=== PATIENT | female | born 1940 | race Caucasian/White ===

== ENCOUNTER 2019-10-01 00:49 | Emergency (ER) | payer MEDICARE ==
[~2019-10-01] VITALS: Ht 170.2 cm; Wt 57.6 kg
--- NOTE | ~2019-10-01 | EKG ---
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
[2019-10-01] MEDS ORDERED: TOPROL XL100 MG PO (01:03)
[2019-10-01] MEDS ORDERED: LEVO-T100 MCG PO (01:03)
[2019-10-01] MEDS ORDERED: CLOPIDOGREL75 MG PO (01:03)
[2019-10-01] MEDS ORDERED: VITAMIN B-1100 M2 PO (01:04)
[2019-10-01] MEDS ORDERED: ASA81BEC PO (01:04)
[2019-10-01] MEDS ORDERED: SUPER THERAVIT1 EACH PO (01:04)
[2019-10-01 01:47] LABS: ABSOLUTE EOSINOPHILS 0.1 thou/uL (0.0-0.7); ABSOLUTE LYMPHOCYTES 1.2 thou/uL (0.8-5.3); ABSOLUTE MONOCYTES 0.5 thou/uL (0.0-1.2); ABSOLUTE NEUTROPHILS 2.6 thou/uL (1.6-8.1); BASOPHILS 1.1 %; EOSINOPHILS 3.2 %; HEMATOCRIT 34.1 % (37.0-47.0); HEMOGLOBIN 12.3 gm/dL (12.0-15.0); LYMPHOCYTES 26.9 %; MCH 34.7 pg (26.0-34.0); MCV 96.5 fL (80.0-100.0); MONOCYTES 10.7 %; MPV 7.9 fl. (7.2-11.1); NUCLEATED RBCS 0 /100WBC; PLATELET COUNT* 185 thou/uL (150-400); POLYS 58.1 %; RBC 3.53 mil/uL (4.20-5.00); RDW-CV 12.5 % (10.5-14.5); WBC 4.4 thou/uL (4.0-11.0)
[2019-10-01 01:48] LABS: CALCIUM 8.8 mg/dL (8.5-10.1); CREATININE 0.7 mg/dL (0.6-1.3); POTASSIUM 3.2 mmol/L (3.5-5.1)
[2019-10-01 01:59] LABS: ALBUMIN 3.9 g/dL (3.4-5.0); TOTAL BILIRUBIN 0.5 mg/dL (<0.1-1.0); TOTAL PROTEIN 6.8 g/dL (6.4-8.2)
[2019-10-01] MEDS ORDERED: HYDROCHLOROTHIA25 M2 PO (03:04)
[2019-10-01 04:31] VITALS: BP 180/62
== END 2019-10-01 04:31 | disposition home or self-care (01) ==
LOC: M.ERS 00:49
PROVIDERS: Personal Emergency Response Attendant
DX: I16.0 Hypertensive urgency (principal); I10 Essential (primary) hypertension; Z85.3 Personal history of malignant neoplasm of breast; Z85.850 Personal history of malignant neoplasm of thyroid

== ENCOUNTER 2019-10-03 12:25 | Emergency (ER) | payer MEDICARE ==
[~2019-10-03] VITALS: Ht 170.2 cm; Wt 56.7 kg
--- NOTE | ~2019-10-03 | EKG ---
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: : 1940 Requested By: Genoveva Lorenzo Order Number: [id number] MD: Measurements Intervals [place] Rate: 53 P: 78 AR: 213 QRS: 9 QRSD: 95 T: 78 QT: 441 QTc: 414 Interpretive Statements Sinus rhythm Borderline prolonged AR interval RSR' in V1 or V2, right VCD or RVH Compared to ECG 10/01/2019 00:53:14 Right ventricular hypertrophy now present Left ventricular hypertrophy no longer present Early repolarization no longer present Myocardial infarct finding no longer present [email or web address] By: [id number] Epiphany EpiphMD rachele /ARON
[~2019-10-03 12:25] MED LIST: ASA81BEC PO; CLOPIDOGREL75 MG PO; HYDROCHLOROTHIA25 M2 PO; LEVO-T100 MCG PO; SUPER THERAVIT1 EACH PO; TOPROL XL100 MG PO; VITAMIN B-1100 M2 PO
[2019-10-03] MEDS ORDERED: ATORVASTATIN CA80 MG PO (12:48)
[2019-10-03] MEDS ORDERED: METOPROLOL TAR100 MG PO (12:49)
[2019-10-03 12:53] LABS: ABSOLUTE BASOPHILS 0.1 thou/uL (0.0-0.2); ABSOLUTE EOSINOPHILS 0.1 thou/uL (0.0-0.7); ABSOLUTE LYMPHOCYTES 0.9 thou/uL (0.8-5.3); ABSOLUTE MONOCYTES 0.4 thou/uL (0.0-1.2); ABSOLUTE NEUTROPHILS 4.8 thou/uL (1.6-8.1); BASOPHILS 0.9 %; EOSINOPHILS 1.1 %; HEMATOCRIT 38.1 % (37.0-47.0); HEMOGLOBIN 13.4 gm/dL (12.0-15.0); LYMPHOCYTES 14.1 %; MCH 34.4 pg (26.0-34.0); MCHC 35.3 g/dL (28.0-37.0); MCV 97.6 fL (80.0-100.0); MONOCYTES 6.8 %; MPV 7.7 fl. (7.2-11.1); NUCLEATED RBCS 0 /100WBC; PLATELET COUNT* 219 thou/uL (150-400); POLYS 77.1 %; RBC 3.91 mil/uL (4.20-5.00); RDW-CV 12.8 % (10.5-14.5); WBC 6.3 thou/uL (4.0-11.0)
[2019-10-03 13:01] LABS: CALCIUM 9.3 mg/dL (8.5-10.1); CREATININE 0.6 mg/dL (0.6-1.3); POTASSIUM 3.7 mmol/L (3.5-5.1)
[2019-10-03 13:05] LABS: ALBUMIN 4.3 g/dL (3.4-5.0); TOTAL BILIRUBIN 0.9 mg/dL (<0.1-1.0); TOTAL PROTEIN 7.3 g/dL (6.4-8.2)
[2019-10-03 13:49] LABS: URINE BILIRUBIN NEGATIVE (Negative); URINE BLOOD TRACE (Negative); URINE CLARITY CLEAR; URINE COLOR YELLOW; URINE GLUCOSE-RANDOM NEGATIVE (Negative); URINE KETONES NEGATIVE (Negative); URINE LEUKOCYTES-REFLEX NEGATIVE (Negative); URINE NITRITE-REFLEX NEGATIVE (Negative); URINE PROTEIN NEGATIVE (Negative); URINE SPECIFIC GRAVITY 1.015 (1.005-1.030); URINE UROBILINOGEN 0.2 E.U./dl (0.2-1.0)
[2019-10-03 15:45] VITALS: BP 163/64
== END 2019-10-03 15:45 | disposition home or self-care (01) ==
LOC: M.ERS 12:25
PROVIDERS: Physician Assistant
DX: I10 Essential (primary) hypertension (principal); Z85.3 Personal history of malignant neoplasm of breast; Z85.850 Personal history of malignant neoplasm of thyroid

== ENCOUNTER → 2019-10-08 | Outpatient (CLI) | payer MEDICARE ==
[~2019-10-08] MED LIST changes: +ATORVASTATIN CA80 MG PO; +METOPROLOL TAR100 MG PO
--- NOTE | 2019-10-08 16:23 | 2DMMODE ---
[place] [address] 2 D/M-MODE ECHOCARDIOGRAM Name: MELINA KEMP Room: [facility]#: [id number] Admission: 10/08/19 Attend Phys: Roly Dumont DO Discharge: Date of : 38 Date of Service: 10/08/19 1622 Report #: [id number] THIS REPORT FOR: cc: Roly Dumont Adam J DO Holkins, John M. MD [facility] ~ APPROVED REPORT Study performed: 10/08/2019 14:09:45 EXAM: Comprehensive 2D, Doppler, and color-flow Echocardiogram Patient Location: Out-Patient BSA: 1.64 HR: 64 bpm BP: 138/72 mmHg Other Information Study Quality: Good Indications Murmur 2D Dimensions IVSd: 10.31 (7-11mm) LVOT Diam: 20.27 (18-24mm) LVDd: 46.15 mm PWd: 10.87 (7-11mm) Ascending Ao: 29.33 (22-36mm) LVDs: 29.68 (25-40mm) Aortic Root: 25.96 mm Volumes Left Atrial Volume (Systole) LA ESV Index: 27.80 mL/m2 Aortic Valve AoV Peak Jeremiah.: 1.22 m/s AO Peak Gr.: 5.98 mmHg LVOT Max P.37 mmHg AO Mean Gr.: 3.61 mmHg LVOT Mean P.27 mmHg LVOT Max V: 0.77 m/s AO V2 VTI: 31.54 cm LVOT Mean V: 0.53 m/s HECTOR (VTI): 2.25 cm2 LVOT V1 VTI: 22.02 cm AI [place]: 2.57 m/s2 AI PHT: 531.85 [place] [address] 2 D/M-MODE ECHOCARDIOGRAM Name: MELINA KEMP Room: [facility]#: [id number] Admission: 10/08/19 Attend Phys: Roly Dumont DO Discharge: Date of : 38 Date of Service: 10/08/19 1622 Report #: [id number] Mitral Valve E/A Ratio: 0.96 MV Decel. Time: 182.33 ms MV E Max Jeremiah.: 0.60 m/s MV PHT: 52.88 ms MVA (PHT): 4.16 cm2 TDI E/Lateral E': 6.00 E/Medial E': 6.00 Medial E' Jeremiah.: 0.10 m/s Lateral E' Jeremiah.: 0.10 m/s Pulmonary Valve PV Peak Jeremiah.: 0.92 m/s PV Peak Gr.: 3.36 mmHg Tricuspid Valve RAP Estimate: 5.00 mmHg TR Peak Gr.: 18.83 mmHg RVSP: 23.83 mmHg PA Pressure: 23.83 mmHg Left Ventricle The left ventricle is normal size. There is normal LV segmental wall motion. There is normal left ventricular wall thickness. Left ventricular systolic function is borderline. LVEF is 50-55%. Grade I - abnormal relaxation pattern. Right Ventricle The right ventricle is normal size. The right ventricular systolic function is normal. Atria The left atrium size is normal. The right atrium size is normal. Aortic Valve Mild aortic valve sclerosis. Mild to moderate aortic regurgitation. There is no aortic valvular stenosis. Mitral Valve The mitral valve is normal in structure. Mild mitral regurgitation. No evidence of mitral valve stenosis. Tricuspid Valve The tricuspid valve is normal in structure. [place] [address] 2 D/M-MODE ECHOCARDIOGRAM Name: DEACON ORENMELINA Jennifer Room: [facility]#: [id number] Admission: 10/08/19 Attend Phys: Roly Dumont DO Discharge: Date of : 38 Date of Service: 10/08/19 1622 Report #: [id number] Pulmonic Valve The pulmonary valve is normal in structure. Mild pulmonic regurgitation. Great Vessels The aortic root is normal in size. IVC is normal in size and collapses >50% with inspiration. Pericardium There is no pericardial effusion. <Conclusion> The left ventricle is normal size. There is normal left ventricular wall thickness. Left ventricular systolic function is borderline. LVEF is 50-55%. Grade I - abnormal relaxation pattern. The right ventricle is normal size. The left atrium size is normal. Mild aortic valve sclerosis. Mild to moderate aortic regurgitation. There is no aortic valvular stenosis. The mitral valve is normal in structure. Mild mitral regurgitation. The tricuspid valve is normal in structure. IVC is normal in size and collapses >50% with inspiration. There is no pericardial effusion. There is normal LV segmental wall motion. <ELECTRONICALLY SIGNED> By: Samir Herron MD, FACC 10/08/191621 21 21 Samir Herron MD, FACC /INF
== END ==
LOC: M.CRD 13:06
DX: I08.8 Other rheumatic multiple valve diseases (principal)

== ENCOUNTER 2019-10-18 16:42 | Inpatient (IN) | payer MEDICARE ==
[~2019-10-18] VITALS: Ht 170.2 cm; Wt 55.3 kg
[2019-10-18 16:44] VITALS: BP 196/73
[2019-10-18] MEDS ORDERED: ZESTRIL10 MG PO (16:49)
[2019-10-18 17:10] LABS: HEMATOCRIT 33.3 % (37.0-47.0); HEMOGLOBIN 11.8 gm/dL (12.0-15.0); MCH 34.1 pg (26.0-34.0); MCHC 35.3 g/dL (28.0-37.0); MCV 96.6 fL (80.0-100.0); MPV 6.8 fl. (7.2-11.1); NUCLEATED RBCS 0 /100WBC; PLATELET COUNT* 225 thou/uL (150-400); RBC 3.45 mil/uL (4.20-5.00); RDW-CV 12.6 % (10.5-14.5); WBC 13.5 thou/uL (4.0-11.0)
[2019-10-18 17:18] LABS: CALCIUM 9.2 mg/dL (8.5-10.1); CREATININE 0.8 mg/dL (0.6-1.3); POTASSIUM 3.6 mmol/L (3.5-5.1)
[2019-10-18 17:19] LABS: APTT 26.3 Seconds (25.0-31.3); INR 1.1; PROTIME 11.4 Seconds (9.20-11.50)
[2019-10-18 17:33] LABS: ALBUMIN 3.8 g/dL (3.4-5.0); CK-MB MASS 0.7 ng/mL (<0.5-3.6); MAGNESIUM 1.6 mg/dL (1.8-2.4); TOTAL BILIRUBIN 0.6 mg/dL (<0.1-1.0); TOTAL PROTEIN 6.9 g/dL (6.4-8.2)
[2019-10-18 17:33] LABS: INFLUENZA A ANTIGEN Negative (Negative); INFLUENZA B ANTIGEN Negative (Negative)
[2019-10-18 17:49] LABS: URINE BILIRUBIN NEGATIVE (Negative); URINE BLOOD TRACE (Negative); URINE CLARITY CLEAR; URINE COLOR YELLOW; URINE GLUCOSE-RANDOM NEGATIVE (Negative); URINE KETONES NEGATIVE (Negative); URINE LEUKOCYTES-REFLEX TRACE (Negative); URINE NITRITE-REFLEX NEGATIVE (Negative); URINE PROTEIN NEGATIVE (Negative); URINE UROBILINOGEN 0.2 E.U./dl (0.2-1.0)
[2019-10-18 17:59] LABS: ABSOLUTE LYMPHOCYTES 0.4 thou/uL (0.8-5.3); ABSOLUTE MONOCYTES 0.3 thou/uL (0.0-1.2); ABSOLUTE NEUTROPHILS 12.8 thou/uL (1.6-8.1)
[2019-10-18 18:00] LABS: PLATELET ESTIMATE ADEQUATE
[2019-10-18 18:06] LABS: MUCUS None Seen strn/LPF (None Seen); URINE WBC-REFLEX 0-5 Rare /HPF (0-5)
[2019-10-18 18:07] LABS: BACTERIA-REFLEX 1-9 Few /HPF (None Seen); CASTS None Seen /LPF (None Seen); CRYSTALS None Seen /LPF (None Seen); SQUAMOUS 0-3 Few /LPF (0-3); URINE RBC 0-2 Rare /HPF (0-2)
[2019-10-18 19:35] VITALS: BP 154/58
[2019-10-18 19:45] VITALS: BP 133/60
--- NOTE | 2019-10-18 19:45 | NUR ---
RECEIVED REPORT FROM ER. PT TO ROOM, AMBULATED FROM CART TO BR WITH STEADY GAIT. NO ACUTE DISTRESS. MED GIVEN IN ER FOR MENDEZ WITH IMPROVEMENT. TELEMETRY APPLIED SHOWING SR WITH 1ST AVB. SEE ADMISSION HX AND ASSESSMENT. WILL CONT TO MONITOR AND ASSIST NEEDED.
[2019-10-18 23:57] VITALS: BP 140/62
[2019-10-19] VITALS (7 sets, daily range): BP systolic 115–165; BP diastolic 51–77
--- NOTE | 2019-10-19 05:31 | NUR ---
SLEEPING WELL TONIGHT. TEMP 102.2, TYLENOL GIVEN, ANTIBIOTICS STARTED IN ER, UA AND BLOOD CULTURES OBTAINED IN ER. PT CONCERNED ABOUT "BROWN DISCHARGE WITH URINE". GAIT STEADY TO AND FROM BR. HS GOALS OF REST AND SAFETY ACHIEVED. HOURLY ROUNDING OBSERVED.
--- NOTE | 2019-10-19 11:36 | EKG ---
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: : 1940 Requested By: Angelo Shine Order Number: [id number] MD: Samir Herron Measurements Intervals [place] Rate: 111 P: 0 ND: 189 QRS: -25 QRSD: 93 T: -47 QT: 322 QTc: 438 Interpretive Statements Sinus tachycardia Left ventricular hypertrophy Nonspecific T abnormalities, lateral leads Baseline wander in lead(s) I,III,aVL Compared to ECG 10/03/2019 12:54:21 Left ventricular hypertrophy now present T-wave abnormality now present Sinus bradycardia no longer present Electronically Signed On 10-19-2019 11:35:45 TREE SAPPER by Samir Herron [email or web address] <ELECTRONICALLY SIGNED> By: Samir Herron MD, [facility] 10/19/19 1135 1644 1644 Samir Herron MD, [facility] /EPI
[2019-10-20 00:23] VITALS: BP 175/56
[2019-10-20 04:15] VITALS: BP 186/72
[2019-10-20 05:12] LABS: ABSOLUTE BASOPHILS 0.1 thou/uL (0.0-0.2); ABSOLUTE EOSINOPHILS 0.2 thou/uL (0.0-0.7); ABSOLUTE LYMPHOCYTES 0.8 thou/uL (0.8-5.3); ABSOLUTE MONOCYTES 0.6 thou/uL (0.0-1.2); ABSOLUTE NEUTROPHILS 5.7 thou/uL (1.6-8.1); BASOPHILS 0.7 %; EOSINOPHILS 2.1 %; HEMATOCRIT 30.7 % (37.0-47.0); HEMOGLOBIN 10.8 gm/dL (12.0-15.0); LYMPHOCYTES 11.4 %; MCHC 35.3 g/dL (28.0-37.0); MCV 96.4 fL (80.0-100.0); MONOCYTES 8.3 %; MPV 7.1 fl. (7.2-11.1); NUCLEATED RBCS 0 /100WBC; PLATELET COUNT* 205 thou/uL (150-400); POLYS 77.5 %; RBC 3.18 mil/uL (4.20-5.00); RDW-CV 12.9 % (10.5-14.5); WBC 7.3 thou/uL (4.0-11.0)
[2019-10-20 05:26] LABS: ALBUMIN 3.1 g/dL (3.4-5.0); CALCIUM 8.4 mg/dL (8.5-10.1); CREATININE 0.5 mg/dL (0.6-1.3); POTASSIUM 3.5 mmol/L (3.5-5.1); TOTAL BILIRUBIN 0.6 mg/dL (<0.1-1.0); TOTAL PROTEIN 6.1 g/dL (6.4-8.2)
--- NOTE | 2019-10-20 05:49 | NUR ---
PT CARE ASSUMED AT 1930. SAT MAINTAINED IN RA. ALERT AND ORIENTED X4. CALL LIGHT WITHIN REACH AND BED IN LOW POSITION. BP ELEVATED INFORMED TO PHYSICIAN, MEDICATION GIVEN PER EMAR. C/O PAIN, MEDICATION GIVEN PER EMAR. PT HAVING DIZZINESS THIS AM. HOURLY ROUNDING DONE FOR PT SAFETY.
[2019-10-20 06:00] VITALS: BP 184/76
[2019-10-20 08:25] VITALS: BP 139/71
--- NOTE | 2019-10-20 09:31 | NUR ---
PT REPORTS FEELING PALPITATIONS AND DIZZINESS. DIZZINESS IS NEW TODAY BUT REPORTS THAT PALPITATIONS STARTED WHEN SHE STARTED TAKING LISINOPRIL. MORNING DOSE HEL AND WILL REASSESS AT NOON
[2019-10-20 12:00] VITALS: BP 152/59
--- NOTE | 2019-10-20 15:36 | NUR ---
PT HAS BEEN RESTING AND AMBULATING AROUND ROOM ON ROUNDS WITHOUT C/O DIZZINES AST THIS TIME. VSS ON RA. SON VISITED AND DID REPORT THAT PT DRINKS HEAVILY DAILY BUT HAS NOT SHOWN ANY OUTWARD SIGNS OF WD. PT DOES ACT A BIT ANXIOUS. PT REPORTED PALPITATIONS THIS AM AND REFUSED LISINOPRIL. NO FURTHER REQUEST. CLWR.
[2019-10-20 17:08] LABS: ABSOLUTE EOSINOPHILS 0.2 thou/uL (0.0-0.7); ABSOLUTE LYMPHOCYTES 1.1 thou/uL (0.8-5.3); ABSOLUTE MONOCYTES 0.7 thou/uL (0.0-1.2); ABSOLUTE NEUTROPHILS 5.6 thou/uL (1.6-8.1); BASOPHILS 0.5 %; EOSINOPHILS 2.5 %; HEMOGLOBIN 11.9 gm/dL (12.0-15.0); LYMPHOCYTES 14.8 %; MCH 33.8 pg (26.0-34.0); MCV 96.6 fL (80.0-100.0); MONOCYTES 9.1 %; NUCLEATED RBCS 0 /100WBC; PLATELET COUNT* 242 thou/uL (150-400); POLYS 73.1 %; RBC 3.52 mil/uL (4.20-5.00); RDW-CV 12.9 % (10.5-14.5); WBC 7.7 thou/uL (4.0-11.0)
[2019-10-20 17:14] LABS: INR 1.1; PROTIME 11.2 Seconds (9.20-11.50)
[2019-10-20 17:22] LABS: ALBUMIN 3.6 g/dL (3.4-5.0); CALCIUM 8.8 mg/dL (8.5-10.1); CREATININE 0.6 mg/dL (0.6-1.3); PHOSPHORUS* 3.3 mg/dL (2.5-4.9); POTASSIUM 4.1 mmol/L (3.5-5.1); TOTAL BILIRUBIN 0.7 mg/dL (<0.1-1.0); TOTAL PROTEIN 6.7 g/dL (6.4-8.2)
--- NOTE | 2019-10-20 18:52 | NUR ---
READMINISTERED TELE MONITOR. PT GIVEN PO ATIVAN. PT INITIALLY REFUSED FLUIDS BUT IS NOW OK WITH IT. PT EDUCATED ON ALCOHOL WITHDRAWAL AND MADE TO UNDERSTAND THAT THIS IS NOT A JUDGMENT NOR IS ANYONE TELLING HER SHE HAS TO QUIT. WE ARE MANAGING SYMPTOMS.
[2019-10-20 19:50] VITALS: BP 150/67
[2019-10-21 00:09] VITALS: BP 137/47
--- NOTE | 2019-10-21 03:40 | NUR ---
PT CARE ASSUMED AT 1930. SAT MAINTAINED IN . PT WAS CONFUSED, RESTLESS AND AGITATED, RIPPED THE IV OUT.
--- NOTE | 2019-10-21 05:56 | NUR ---
PT CARE ASSUMED AT 1930. SAT MAINTAINED IN RA. PT IS WITHDRAWING FROM ALCOHOL. CONFUSED, IMPULSIVE AND RESTLESS. PULLED HER IV TWICE. MEDICATION GIVEN ORDERED. CALL LIGHT WITHIN REACH AND BED IN LOW POSITION. HOURLY ROUNDING DONE FOR PT SAFETY.
[2019-10-21 08:03] LABS: AMP/METHAMP Negative (Negative); BARBITURATES Negative (Negative); BENZODIAZEPINES Negative (Negative); COCAINE Negative (Negative); METHADONE Negative (Negative); OPIATES Negative (Negative); PCP Negative (Negative); THC Negative (Negative)
[2019-10-21 11:07] VITALS: BP 196/88
--- NOTE | 2019-10-21 18:27 | NUR ---
PT HAS BEEN OX2,CONFUSED, IMPULSIVE,ANXIOUS AND IRRITABLE. CIWA BETWEEN 8-10. BP HAS BEEN ELEVATED T/O DAY, ASYMPTOMATIC WITHOUT ANY OTHER COMPLAINTS T/O DAY AND OTHER VSS ON RA. PT IS UNSTEADY WITH ASSIST. FALL PRECAUTIONS IN PLACE ALTHOUGH PT DOES CLIMB OVER RAILS AND HAS LOST 3 IVS R/T THIS IN LESS THAN 24 HOURS. MAY REQUEST MOVING PT CLOSER TO NURSES STATION.
[2019-10-21 19:40] VITALS: BP 164/73
[2019-10-22 00:23] VITALS: BP 172/52
[2019-10-22 04:00] VITALS: BP 159/62
--- NOTE | 2019-10-22 04:52 | NUR ---
PT CARE ASSUMED AT 1930. SAT MAINTAINED IN RA. PT ORIENTED TO SELF. CONFUSED AND RESTLESS, PULLED HER IV OUT. KEPT ON TAKING HER HEART MONITOR OFF. MEDICATION GIVEN PER EMAR. CALL LIGHT WITHIN REACH AND BED IN LOW POSITION. HOURLY ROUNDING DONE FOR PT SAFETY.
[2019-10-22 05:40] LABS: CALCIUM 8.2 mg/dL (8.5-10.1); CREATININE 0.4 mg/dL (0.6-1.3); MAGNESIUM 1.9 mg/dL (1.8-2.4); PHOSPHORUS* 3.2 mg/dL (2.5-4.9); POTASSIUM 3.3 mmol/L (3.5-5.1)
[2019-10-22 07:35] VITALS: BP 180/77
[2019-10-22 12:08] VITALS: BP 181/65
[2019-10-22] MEDS ORDERED: MACROBID 100 M100 MG PO (12:45)
[2019-10-22] MEDS ORDERED: HYDRALAZINE 2525 MG PO (12:45)
--- NOTE | 2019-10-22 12:58 | NUR ---
Pt discharging to home today with Lisbeth FOURNIER, faxed referral
[2019-10-22 17:17] VITALS: BP 176/75
--- NOTE | 2019-10-22 17:39 | NUR ---
PATIENT DC TO HOME WITH DAUGHTER ONCE SHE ARRIVES AROUND 1830. FALL PRECAUTIONS IN PLACE. CALL LIGHT IN REACH.
[2019-10-22 17:46] VITALS: BP 176/75
== END 2019-10-22 19:00 | disposition home or self-care (01) | DRG 871 ==
LOC: M.ERS 16:42 → M.2W 18:25 → M.TBA-ER 18:25 → M.2W 20:10
PROVIDERS: Family Medicine; Internal Medicine; ADMIT Internal Medicine
DX: A41.50 Gram-negative sepsis, unspecified (principal); G93.41 Metabolic encephalopathy; N39.0 Urinary tract infection, site not specified; E89.0 Postprocedural hypothyroidism; C50.919 Malignant neoplasm of unspecified site of unspecified female breast; C73 Malignant neoplasm of thyroid gland; I10 Essential (primary) hypertension; E78.5 Hyperlipidemia, unspecified; Z79.82 Long term (current) use of aspirin; Z79.899 Other long term (current) drug therapy; Z87.891 Personal history of nicotine dependence

== ENCOUNTER 2020-09-04 06:26 | Emergency (ER) | payer MEDICARE ==
[~2020-09-04] VITALS: Ht 170.2 cm; Wt 58.1 kg
[~2020-09-04 06:26] MED LIST changes: +HYDRALAZINE 2525 MG PO; +MACROBID 100 M100 MG PO; +ZESTRIL10 MG PO
[2020-09-04 07:04] LABS: ABSOLUTE EOSINOPHILS 0.1 thou/uL (0.0-0.7); ABSOLUTE MONOCYTES 0.4 thou/uL (0.0-1.2); ABSOLUTE NEUTROPHILS 5.9 thou/uL (1.6-8.1); BASOPHILS 0.6 %; EOSINOPHILS 1.4 %; HEMATOCRIT 36.9 % (37.0-47.0); HEMOGLOBIN 12.6 gm/dL (12.0-15.0); LYMPHOCYTES 13.6 %; MCH 32.4 pg (26.0-34.0); MCHC 34.2 g/dL (28.0-37.0); MCV 94.8 fL (80.0-100.0); MONOCYTES 5.8 %; MPV 7.2 fl. (7.2-11.1); NUCLEATED RBCS 0 /100WBC; PLATELET COUNT* 201 thou/uL (150-400); POLYS 78.6 %; WBC 7.5 thou/uL (4.0-11.0)
[2020-09-04 07:15] LABS: INR 1.1; PROTIME 11.4 Seconds (9.20-11.50)
[2020-09-04 08:08] LABS: CALCIUM 8.9 mg/dL (8.5-10.1); CREATININE 0.6 mg/dL (0.6-1.3); POTASSIUM 3.7 mmol/L (3.5-5.1)
[2020-09-04 08:13] LABS: ALBUMIN 3.8 g/dL (3.4-5.0); TOTAL BILIRUBIN 0.6 mg/dL (<0.1-1.0); TOTAL PROTEIN 6.4 g/dL (6.4-8.2)
[2020-09-04 09:35] VITALS: BP 207/75
--- NOTE | 2020-09-04 12:46 | EKG ---
[place] [address] ELECTROCARDIOGRAM REPORT Name: MELINA KEMP Room: [facility]#: [id number] Admission: 09/04/20 Attend Phys: Discharge: 09/04/20 Date of : 38 Date of Service: 09/04/2032 Report #: [id number] THIS REPORT FOR: //name// [facility] ED Test Date: 2020-09-04 Test Time: 06:32:22 Pat Name: MELINA LOTT Department: Room: Gender: F Supervisor Histology: TOM : 1940 Requested By: Laly Almaraz Order Number: [id number] MD: Atilio Kevin Measurements Intervals [place] Rate: 52 P: 34 PA: 218 QRS: -22 QRSD: 95 T: 77 QT: 454 QTc: 423 Interpretive Statements Sinus rhythm with first-degree AV block Ventricular premature complex Probable left atrial enlargement Borderline left axis deviation RSR' in V1 or V2, probably normal variant Minimal ST depression, lateral leads Compared to ECG 10/18/2019 16:44:04 Ventricular premature complex(es) now present ST (T wave) deviation now present Sinus tachycardia no longer present Left ventricular hypertrophy no longer present T-wave abnormality no longer present Electronically Signed On 09-04-2020 12:46:44 IN FLIGHT REFUELING OPERATOR by Atilio Kevin [email or web address] <ELECTRONICALLY SIGNED> By: Atilio Kevin MD, [facility] 09/04/20 1246 Atilio Kevin MD, [facility] /EPI
== END 2020-09-04 09:40 | disposition home or self-care (01) ==
LOC: M.ERS 06:26
PROVIDERS: Emergency Medicine; Family Medicine
DX: I10 Essential (primary) hypertension (principal); Z20.828 Contact with and (suspected) exposure to other viral communicable diseases; R79.1 Abnormal coagulation profile; Z79.899 Other long term (current) drug therapy; Z79.82 Long term (current) use of aspirin

== ENCOUNTER 2020-09-05 23:09 | Emergency (ER) | payer MEDICARE ==
[~2020-09-05] VITALS: Ht 170.2 cm; Wt 57.6 kg
[2020-09-06 01:06] LABS: ABSOLUTE EOSINOPHILS 0.2 thou/uL (0.0-0.7); ABSOLUTE LYMPHOCYTES 1.3 thou/uL (0.8-5.3); ABSOLUTE MONOCYTES 0.6 thou/uL (0.0-1.2); ABSOLUTE NEUTROPHILS 4.6 thou/uL (1.6-8.1); BASOPHILS 0.7 %; EOSINOPHILS 2.5 %; HEMOGLOBIN 11.2 gm/dL (12.0-15.0); LYMPHOCYTES 18.7 %; MCH 32.2 pg (26.0-34.0); MCHC 33.9 g/dL (28.0-37.0); MCV 94.9 fL (80.0-100.0); MONOCYTES 8.8 %; MPV 7.3 fl. (7.2-11.1); NUCLEATED RBCS 0 /100WBC; PLATELET COUNT* 195 thou/uL (150-400); POLYS 69.3 %; RBC 3.47 mil/uL (4.20-5.00); RDW-CV 12.9 % (10.5-14.5); WBC 6.7 thou/uL (4.0-11.0)
[2020-09-06 01:09] LABS: CALCIUM 8.8 mg/dL (8.5-10.1); CREATININE 0.7 mg/dL (0.6-1.3); POTASSIUM 3.2 mmol/L (3.5-5.1)
[2020-09-06 01:10] LABS: INR 1.1; PROTIME 11.7 Seconds (9.20-11.50)
[2020-09-06 01:14] LABS: ALBUMIN 3.5 g/dL (3.4-5.0); TOTAL BILIRUBIN 0.3 mg/dL (<0.1-1.0); TOTAL PROTEIN 5.9 g/dL (6.4-8.2)
[2020-09-06] MEDS ORDERED: CATAPRES0.1 MG PO (05:04)
[2020-09-06 05:58] VITALS: BP 174/91
--- NOTE | 2020-09-08 10:04 | EKG ---
[place] [address] ELECTROCARDIOGRAM REPORT Name: MELINA KEMP Room: 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: [place] : 1940 Requested By: Leanna Friedman Order Number: [id number] MD: Samir Herron Measurements Intervals [place] Rate: 91 P: 81 SD: 222 QRS: -22 QRSD: 100 T: 50 QT: 394 QTc: 485 Interpretive Statements Sinus rhythm Prolonged SD interval RSR' in V1 or V2, right VCD LVH with secondary repolarization abnormality Compared to ECG 09/04/2020 06:32:22 First degree AV block now present Left ventricular hypertrophy now present Early repolarization now present Ventricular premature complex(es) no longer present Electronically Signed On 09-08-2020 10:04:03 SAMPLE CASE PORTER by Samir Herron [email or web address] <ELECTRONICALLY SIGNED> By: Samir Herron MD, [facility] 09/08/20 1004 08 08 Samir Herron MD, [facility] /EPI
== END 2020-09-06 05:58 | disposition home or self-care (01) ==
LOC: M.ERS 23:09
PROVIDERS: Personal Emergency Response Attendant
DX: I16.0 Hypertensive urgency (principal); R00.2 Palpitations; Z90.89 Acquired absence of other organs; Z79.82 Long term (current) use of aspirin; Z79.01 Long term (current) use of anticoagulants; Z79.899 Other long term (current) drug therapy

== ENCOUNTER → 2020-09-26 | Outpatient (CLI) | payer MEDICARE ==
[~2020-09-26] MED LIST changes: +CATAPRES0.1 MG PO
--- NOTE | 2020-09-27 14:33 | CARDNUC ---
[place] [address] CARDIAC NUCLEAR IMAGING REPORT Name: MELINA KEMP Room: [facility]#: [id number] Admission: 09/26/20 Attend Phys: Roly Dumont DO Discharge: Date of : 38 Date of Service: 09/27/20 1433 Report #: [id number] THIS REPORT FOR: cc: Roly Dumont Adam J DO Liston, Michael J. MD [facility] ~ APPROVED REPORT Study performed: 09/26/2020 14:14:21 Exam: Nuclear Stress Test Indication: Palpitations Patient Location: Out-Patient Stress Tech: Kavita Kang Stress Nurse: Delia Jay RN Ht: 5 ft 7 in Wt: 148 lbs BSA: 1.78 m2 BMI: 23.17 Medical History Medical History: HTN, Hyperlipidemia Medications: amlodipine, asa-81 atorvastatin, clonidine, clopidogrel, metroprolol, Allergies: lisinopril Cardiac Risk Factors: Age, HTN, Hyperlipidemia, Past Smoker Exercise History: Sedentary Meds Held (24 hrs): metoprolol Stress Test Details Stress Test: Pharmacologic stress testing performed using 0.4 mg of regadenoson per 5 mL given IV over 10 seconds. Reason for pharmacologic stress test: physical limitation. HR Resting HR: 75 bpm Max Heart Rate (APMHR): 139 bpm Max HR Achieved: 102 bpm Target HR (85% APMHR): 118 bpm % of APMHR: 73 Recovery HR: 92 bpm BP Resting BP: 168/73 mmHg Max BP: 181/63 [place] [address] CARDIAC NUCLEAR IMAGING REPORT Name: MELINA KEMP Room: [facility]#: [id number] Admission: 09/26/20 Attend Phys: Roly Dumont DO Discharge: Date of : 38 Date of Service: 09/27/20 1433 Report #: [id number] Resting ECG: Sinus Rhythm Stress ECG: Sinus Tachycardia ST Change: None Arrhythmia: None Recovery ECG: Sinus Rhythm Recovery ST Change: None Recovery Arrhythmia: None Clinical Reason for Termination: Completed protocol The patient tolerated Lexiscan infusion without significant cardiac symptoms. Nurse Comments pt to weak top wa;l treadmiill Stress ECG Conclusion The baseline twelve-lead EKG shows sinus rhythm without significant ST segment or T wave abnormality. EKGs obtained during and post Lexiscan infusion show sinus rhythm and sinus tachycardia with no significant ST segment or T wave changes when compared to baseline. There were no stress-induced arrhythmias. NM EXAM: Myocardial Perfusion REST/STRESS Resting Data Rest SPECT myocardial perfusion imaging was performed in supine position 30 minutes following the intravenous injection of 10.1 mCi of Tc-99m Sestamibi. Time of rest injection: 12:45 The images were gated to evaluate regional wall motion and calculate left ventricular ejection fraction. Administration Route: IV Administration Site: Right AC Pharmacologic Stress Pharmacologic stress test was performed by injecting Regadenoson 0.4 mg IV push followed by the intravenous injection of 34.9 mCi of Tc-99m Sestamibi. Time of stress injection: 14:35 Administration Route: IV Administration Site: Right AC Heart Rate at time of stress injection: 102 bpm. Gated Stress SPECT was performed 45 minutes after stress injection. The images were gated to evaluate regional [place] [address] CARDIAC NUCLEAR IMAGING REPORT Name: MELINA KEMP Room: [facility]#: [id number] Admission: 09/26/20 Attend Phys: Roly Dumont DO Discharge: Date of : 38 Date of Service: 09/27/20 1433 Report #: [id number] left ventricular ejection fraction. Study Quality Study: Good Artifact: No artifact Study Data At rest, the left ventricular ejection fraction was 63%.. Post stress, the left ventricular ejection was 62%.. TID = 1.09. Perfusion Perfusion images obtained at rest and post Lexiscan stress show uniform uptake of the radioisotope throughout the myocardium. There were no defects to suggest infarct or ischemia. Wall Motion Normal left ventricular wall motion. Nuclear Conclusion ECG Findings: negative for ischemia Clinical Findings: negative for ischemia Nuclear Findings: negative for ischemia Exercise Capacity: not assessed Left Ventricular Function: normal Risk Study: low Perfusion study show no defect to suggest infarct or ischemia. Left ventricular systolic function appears normal on gated studies. This is a low risk study. <Conclusion> The baseline twelve-lead EKG shows sinus rhythm without significant ST segment or T wave abnormality. EKGs obtained during and post Lexiscan infusion show sinus rhythm and sinus tachycardia with no significant ST segment or T wave changes when compared to baseline. There were no stress-induced arrhythmias. <ELECTRONICALLY SIGNED> By: Atilio Kevin MD, FACC 09/27/20 1433 1433 1433 Atilio Kevin MD, FACC /INF
== END ==
LOC: M.NUC 09-23 13:00
PROVIDERS: ATTEND Family Medicine
DX: I10 Essential (primary) hypertension (principal); R00.2 Palpitations